=== PATIENT | male | born 1985 | race Caucasian/White ===

== ENCOUNTER 2018-09-18 10:35 | Emergency (ER) | payer OTHER ==
[2018-09-18] MEDS ORDERED: TETRACAINE 0.5% OPHTH SOLN 2 ML BOTTLE ONE (10:38)
[2018-09-18] MEDS ORDERED: FLUORESCEIN NA 1 EA STRIP ONE (10:39)
[2018-09-18 10:47] VITALS: TEMP 98.9; BMI 36.2
--- NOTE | 2018-09-18 11:19 | PDOC ---
Attending Attestation - Resident Resident Name: Nain Romero - ED Attending Attestation I have performed the following: I have examined & evaluated the patient, The case was reviewed & discussed with the resident, I agree w/resident's findings & plan, Exceptions are as noted - HPI HPI: 09/18/18 11:19 Agree with resident HPI - Physicial Exam PE: 09/18/18 11:13 GENERAL: Awake, alert, and fully oriented, in no acute distress HEAD: No signs of trauma EYES: PERRLA, EOMI, +conjunctival injection OD as well as clear tearing. Fluorescein testing with no defects noted to cornea. +<1mm black flat FB noted on eversion of eyelid which was removed with cotton swab. 20/20 vision OU. ENT: Oropharynx clear without exudates. Moist mucosa LUNGS: Breath sounds equal, clear to auscultation bilaterally. No wheezes, and no crackles HEART: Regular rate and rhythm, normal S1 and S2, no murmurs, rubs or gallops ABDOMEN: Soft, nontender, normoactive bowel sounds. No guarding, no rebound. No masses EXTREMITIES: Normal range of motion, no edema. No clubbing or cyanosis. No cords, erythema, or tenderness NEUROLOGICAL: Normal speech, cranial nerves intact SKIN: Warm, Dry, normal turgor, no rashes or lesions noted. - Medical Decision Making 09/18/18 11:10 33yo F presents to the ED with R eye FB sensation and pain while cutting through sawdust Eye was flushed out at eye station Pain resolved after tetracaine No visualized corneal defect Small black <1mm FB visualized on eversion of upper eyelid, removed with cotton swab Plan to send pt to ophtho for full slit lamp exam upon DC Case discussed with Dr. Isai Wadsworth who will see pt in the office at 1pm for slit lamp evaluation Pt's BP elevated on arrival On rpt prior to DC, improved to 150/106 but still elevated. No sxs, no headache , weakness/numbness, CP, SOB. Pt states BP often elevated at doctors office. Instructed him to have rpt at PMDs office within 1 week, pt expresses understanding I discussed the physical exam findings, ancillary test results and final diagnoses with the patient. I answered all of the patient's questions. The patient was satisfied with the care received and felt comfortable with the discharge plan and treatment plan. The patient will call their primary care physician within 24 hours to arrange follow-up and will return to the Emergency Department with any new, persistent or worsening symptoms.
--- NOTE | 2018-09-18 11:23 | PDOC ---
History of Present Illness - General Chief Complaint: Eye Problem Stated Complaint: FOREIGNBODY IN RIGHT EYE Time Seen by Provider: 09/18/18 10:47 History Source: Patient Exam Limitations: No Limitations - History of Present Illness Initial Comments: 33 yo M with no past medical history presents to the emergency department with right eye pain. Per the patient, he was using a chainsaw against wood while wearing protective eye wear when particles rushed behind his eye wear into his right eye. Currently, he states his vision is blurry in the right eye with tearing and pain localized to the right upper eye lid. The patient denies previous eye surgeries and pathologies. Denies the following: headaches, dizziness, visual disturbance, hx of arrhythmia, hx of blood clots, diarrhea, chest pain, SOB, nausea, vomiting, dysuria, and leg pain/swelling. Allergies: NKDA Shx: None Social: Denies tobacco, alcohol, and substance abuse. Past History - Past Medical History Allergies/Adverse Reactions: Allergies Allergy/AdvReac Type Severity Reaction Status Date / Time No Known Allergies Allergy Verified 09/18/18 11:45 Home Medications: Ambulatory Orders NK [No Known Home Medication] 09/18/18 COPD: No Other medical history: pt denies - Suicide/Smoking/Psychosocial Hx Smoking History: Never smoked Hx Alcohol Use: Yes (occasional) Drug/Substance Use Hx: No Review of Systems - Review of Systems Able to Perform ROS?: Yes Is the patient limited Irish proficient: No Constitutional: No: Chills, Diaphoresis, Fever, Weakness HEENTM: Yes: Eye Pain (right eye), Blurred Vision (right eye), Tearing. No: Cataracts, Nose Pain, Throat Pain, Mouth Pain Respiratory: No: Cough, Shortness of Breath, Hemoptysis Cardiac (ROS): No: Chest Pain, Lightheadedness, Palpitations, Syncope, Chest Tightness ABD/GI: No: Abdominal Distended, Constipated, Diarrhea, Nausea, Rectal Bleeding , Vomiting, Tarry Stools : No: Burning, Dysuria, Hematuria Musculoskeletal: No: Back Pain, Joint Pain, Neck Pain Integumentary: No: Bruising, Erythema, Rash Neurological: No: Headache, Numbness, Tingling, Tremors Psychiatric: No: Change in Appetite Endocrine: No: Unexplained Weight Gain *Physical Exam - Vital Signs Last Vital Signs Temp Pulse Resp BP Pulse Ox 98.9 F 76 18 190/107 H 99 09/18/18 10:36 09/18/18 10:36 09/18/18 10:36 09/18/18 10:36 09/18/18 10:36 - Physical Exam General Appearance: Yes: Nourished, Appropriately Dressed, Obese. No: Apparent Distress, Alcohol on Breath, Intoxicated HEENT: positive: EOMI, JAY, Normal Voice, Symmetrical, TMs Normal, Pharynx Normal, Other (excessive tearing in right eye. on wood lamp examination, the patient had no evidence of corneal abrasion. on visual insepction of upper lid a black particle was discovered and removed. ). negative: Normal ENT Inspection (tearing and conjunctival injection in right eye) Neck: positive: Trachea midline, Supple. negative: Tender, Lymphadenopathy (R) , Lymphadenopathy (L), Tender lateral, Tender midline Respiratory/Chest: positive: Lungs Clear, Normal Breath Sounds. negative: Chest Tender, Respiratory Distress, Accessory Muscle Use, Crackles, Rales, Rhonchi, Stridor, Wheezing Cardiovascular: positive: Regular Rhythm, Regular Rate, S1, S2. negative: Systolic Murmur Gastrointestinal/Abdominal: positive: Normal Bowel Sounds, Flat, Soft. negative : Tender, Distended, Guarding, Rebound Lymphatic: negative: Adenopathy Musculoskeletal: positive: Normal Inspection. negative: CVA Tenderness, Vertebral Tenderness Extremity: positive: Normal Capillary Refill, Normal Inspection, Normal Range of Motion. negative: Tender Integumentary: positive: Normal Color, Dry, Warm Neurologic: positive: sales representative electric service II-XII NML intact, Fully Oriented, Alert, Normal Mood/ Affect Medical Decision Making - Medical Decision Making 33 yo M with no past medical history presents to the emergency department with right eye pain. Initial vitals Initial Vital Signs Temp Pulse Resp BP Pulse Ox 98.9 F 76 18 190/107 H 99 09/18/18 10:36 09/18/18 10:36 09/18/18 10:36 09/18/18 10:36 09/18/18 10:36 Work up: on physical exam, no evidence of cornal abrasion. removed a black particle from the inner upper right eyelid. patient had relief after administering tetracaine. 09/18/18 11:23 A call was placed to Dr. Eliazar Chavez, optho production supv, declined to see the patient as she only covers [facility]. A call was placed to Dr. Johnston at the number [phone] per his office's pre- recorded message. A voicemail was left at 11:20 am. A call was placed to Dr. Isai Wadsworth at 11:24 am for consultation regarding sending the patient for full eye examination as our department does not have the necessary equipment. the patient was accepted for consultation for a 1 pm appointment same day. The patient was given abx opthalmic solution in the emergency department and given instructions on continued care at home. Dispo: discharged. *DC/Admit/Observation/Transfer Diagnosis at time of Disposition: Foreign body of right eye - Discharge Dispostion Disposition: HOME Condition at time of disposition: Stable Decision to Admit order: No - Referrals Referrals: Brendan Wadsworth MD [Staff Physician] - - Patient Instructions Printed Discharge Instructions: DI for Foreign Body in the Eye Additional Instructions: You were seen in evaluation of your right eye. please place 1 drop every 3 hours in the right eye for 7-10 days. Please follow up with Dr. Wadsworth TODAY at 1PM at his office listed on the sheet. It is at [address] [place] [address]. Thank you. Your blood pressure was high in the emergency department. Follow up with your primary care doctor within 1 week for a repeat blood pressure as discussed. Please return to the emergency department if you have worsening eye pain or new concerning symptoms such as inability to see, move the eye, and fevers. Thank you. - Post Discharge Activity
[2018-09-18] MEDS ORDERED: POLYMYXIN B SULFATE/TMP 10 ML OPHTHALMIC SOLUTION OD ONE (11:43)
[2018-09-18 11:58] VITALS: BP 156/107; PULSE 78
[2018-09-18] MEDS ORDERED: FLUORESCEIN NA 1 EA STRIP OD ONE (12:16)
[2018-09-18] MEDS ORDERED: TETRACAINE 0.5% HCL 0.6ML DROPPER.BOTTLE OD ONE (12:16)
== END 2018-09-18 12:06 | disposition home or self-care (01) ==
LOC: FER 10:35
DX: T15.91XA Foreign body on external eye, part unspecified, right eye, initial encounter (principal)
CPT/HCPCS: 99281-25